=== PATIENT | female | born 1980 | race Caucasian/White ===

== ENCOUNTER 2018-03-20 13:29 | Inpatient (IN) | payer OTHER ==
[~2018-03-20] VITALS: Ht 161.3 cm; Wt 67.1 kg
[~2018-03-20 13:29] MED LIST: ACE3 PO; ALB6.7R INH; IBU800 PO; IBUP800T37 PO; MULT-1032 PO; OMEP-137 PO; ONDA4TAB97 PO
[2018-03-20] MEDS ORDERED: OXYTOCIN 30 UNIT/D5LR 500 ML 500 ML IV PRN (13:43)
[2018-03-20] MEDS ORDERED: LR(*) 1000 ML BAG 1,000 ML IV SCH (13:43)
[2018-03-20] MEDS ORDERED: LIDOCAINE/SOD BICARB 8.4% SYR SC PRN (13:45)
[2018-03-20] MEDS ORDERED: fentaNYL CITR 100 MCG/2 ML AMP IVP PRN (13:45)
[2018-03-20] MEDS ORDERED: LIDOCAINE 1% LOCAL 300 MG/30ML INJ PRN (13:45)
[2018-03-20] MEDS ORDERED: ONDANSETRON 4 MG/2 ML VIAL IVP PRN (13:45)
[2018-03-20] MEDS ORDERED: FLUSH 10 ML SYR IVP PRN (13:45)
--- NOTE | 2018-03-20 13:59 | History & Physical ---
History of Present Illness Chief Complaint Induction for 13wk demise History of Present Illness 37yo at 16w4d by LMP presents for induction due to missed AB. She presented for transfer of care today and was supposed to be 16w4d. Ultrasound revealed no FCA and CRL ~13w2d. No current pain or bleeding. 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 Family History: FH: hypertension Family member FH: thyroid condition Family member Med Rec Home Meds Reported Medications Albuterol Sulfate (PROVENTIL HFA) 6.7 Gm Inh, 1-2 PUFF INH PRN, INH 03/20/18 Ondansetron Hcl (ZOFRAN) 4 Mg Tablet, 4 MG PO PRN, TAB 03/18/18 Omeprazole (OMEPRAZOLE) 20 Mg Tablet.dr, 10 MG PO PRN Y for WHEEZING, TAB 03/18/18 Multivitamin (FLINTSTONES) 1 Each Tab.chew, 1 EACH PO, TAB.CHEW 03/18/18 Discontinued Scripts Acetaminophen/Codeine (TYLENOL #3 (OR EQUIV)) 1 Each Tab, 1-2 EACH PO Q4H Y for pain, #30 TAB 0 Refills Prov:KENNETH FRANCO MD 05/20/15 Ibuprofen (IBUPROFEN) 800 Mg Tab, 800 MG PO Q8H Y for pain, #40 TAB 0 Refills Prov:KENNETH FRANCO MD 05/20/15 Review of Systems Constitutional: No Fever Eyes: No Vision Change Cardiovascular: No Chest Pain, No Palpitations Respiratory: No Shortness of Breath, No Cough Gastrointestinal: No Nausea, No Vomiting, No Diarrhea Genitourinary: No Dysuria Musculoskeletal: No Pain Psychiatric: No Depression, No Anxiety Exam General Exam General Apperance: Alert/Awake/No Acute Distress Neuro: No Gross deficits Eyes: Normal Extraocular Movement & Vison Cardiovascular: Regular Rate and Rhythm Respiratory: No Respiratory Distress, Clear to Auscultation Abdomen: Gravid - Non-Tender : Normal Musculoskeletal: No Weakness/Pain Extremities: No Cyanosis,Clubbing or Edema Integumentary: Skin Intact without Lesions or Rash Psychological: Alert & Oriented X3, Appropriate Mood & Affect Assessment and Plan Problems: (1) Missed with demise before 20 completed weeks of gestation Assessment & Plan: Admit patient. Plan cytotec vaginally. Epidural and anesthesia as desires. Rh positive. Declines any post-delivery testing of tissue. KENNETH FRANCO MD Mar 20, 2018 13:59
[2018-03-20] MEDS ORDERED: MISOPROSTOL 200 MCG TAB PV ONE (14:00)
[2018-03-20 14:10] LABS: PLATELET COUNT, AUTOMATED 245 K/uL (150-450)
[2018-03-20 15:49] VITALS: BP 109/65; Ht 161.3 cm; Wt 67.1 kg
[2018-03-20] MEDS ORDERED: ALB6.7R INH (16:57)
--- NOTE | 2018-03-20 21:09 | Labor Progress Note ---
Labor Subjective Progress Notes Subjective Pt just felt a gush of fluid and noted some bleeding. No significant cramping yet. Labor Objective Vital Signs Vital Signs Date Time Temp Pulse Resp B/P (MAP) Pulse Ox O2 Delivery O2 Flow Rate FiO2 03/20/18 15:49 98.5 65 18 109/65 (80) 96 Room Air Vaginal Discharge/Fluid?: Bloody Fluid General Exam General Appearance: Alert/Awake/No Acute Distress Abdomen: Gravid - Non-Tender : Normal Integumentary: Skin Intact without Lesions or Rash Psychological: Alert & Oriented X3, Appropriate Mood & Affect Other Result Diagram: 03/20/18 1401 Assessment and Plan Problems: (1) Missed with demise before 20 completed weeks of gestation Assessment & Plan: I suspect the patient just ruptured membranes. She is feeling more cramping. May consider po cytotec if she needs additional now. KENNETH FRANCO MD Mar 20, 2018 21:09
[2018-03-20] MEDS ORDERED: MISOPROSTOL 200 MCG TAB PO ONE (21:35)
[2018-03-20] MEDS ORDERED: ONDANSETRON 4 MG ODT TABDP SL PRN (21:35)
--- NOTE | 2018-03-21 00:07 | Labor Progress Note ---
Labor Subjective Progress Notes Subjective Pt felt some pressure and something coming out of the vagina. Labor Objective Vital Signs Vital Signs Date Time Temp Pulse Resp B/P (MAP) Pulse Ox O2 Delivery O2 Flow Rate FiO2 03/20/18 15:49 98.5 65 18 109/65 (80) 96 Room Air General Exam General Appearance: Alert/Awake/No Acute Distress Abdomen: Other (fetus passed onto the bed spontaneously; the placenta was then evacuated from the vagina without difficulty and appears to be intact) Psychological: Alert & Oriented X3, Appropriate Mood & Affect Other Result Diagram: 03/20/18 1401 Assessment and Plan Problems: (1) Missed with demise before 20 completed weeks of gestation Assessment & Plan: Pt passed tissue and placenta. She is having minimal bleeding at this time. She is comfortable after one dose of fentanyl. She is interested in going home tonight if possible. Will plan discharge to home after one hour if still stable. Discussed precautions. RTC 1-2 weeks. KENNETH FRANCO MD Mar 21, 2018 00:07
[2018-03-21] MEDS ORDERED: IBUPROFEN 800 MG TAB PO PRN (00:10)
--- NOTE | 2018-03-21 00:21 | OB/GYN Discharge Summary ---
Discharge Summary Reason for Hosp/Final Diag: (1) Missed with demise before 20 completed weeks of gestation Hospital Course & Plan: Pt passed tissue and placenta after one dose of vaginal and one dose of oral cytotec. She is having minimal bleeding at this time. She is comfortable after one dose of fentanyl. She is interested in going home tonight if possible. Will plan discharge to home after one hour if still stable. Discussed precautions. RTC 1-2 weeks. Lates Vital Signs Vital Signs Date Time Temp Pulse Resp B/P (MAP) Pulse Ox O2 Delivery O2 Flow Rate FiO2 03/20/18 15:49 98.5 65 18 109/65 (80) 96 Room Air Weight (Pounds): 148 Result Diagram: 03/20/18 1401 Condition: Improved Discharge: Home, Self Jail Meds Reported Medications Albuterol Sulfate (PROVENTIL HFA) 6.7 Gm Inh, 1-2 PUFF INH PRN, INH 03/20/18 Ondansetron Hcl (ZOFRAN) 4 Mg Tablet, 4 MG PO PRN, TAB 03/18/18 Omeprazole (OMEPRAZOLE) 20 Mg Tablet.dr, 10 MG PO PRN Y for WHEEZING, TAB 03/18/18 Multivitamin (FLINTSTONES) 1 Each Tab.chew, 1 EACH PO, TAB.CHEW 03/18/18 Discontinued Scripts Acetaminophen/Codeine (TYLENOL #3 (OR EQUIV)) 1 Each Tab, 1-2 EACH PO Q4H Y for pain, #30 TAB 0 Refills Prov:KENNETH MONTGOMERY MD 05/20/15 Ibuprofen (IBUPROFEN) 800 Mg Tab, 800 MG PO Q8H Y for pain, #40 TAB 0 Refills Prov:KENNETH MONTGOMERY MD 05/20/15 Follow up Referrals: [facility] - 04/03/18 @ [facility] with Kenneth Montgomery Md Discharge Diet: As Tolerates Discharge Activity: Pelvic Rest KENNETH MONTGOMERY MD Mar 21, 2018 00:21
== END 2018-03-21 01:05 | disposition home or self-care (01) | DRG 779 ==
LOC: OB 13:29
PROVIDERS: ADMIT Obstetrics & Gynecology; ATTEND Obstetrics & Gynecology
DX: O02.1 Missed abortion (principal); Z3A.16 16 weeks gestation of pregnancy; Z88.2 Allergy status to sulfonamides; Z91.040 Latex allergy status
CPT/HCPCS: 36415; 85025; 86850; 86900; 86901; J3010; J7120; S0119

== ENCOUNTER → 2018-07-14 | Outpatient (CLI) | payer OTHER ==
[2018-03-20 15:49] VITALS: BMI 25.8
[2018-07-14 09:53] LABS: PLATELET COUNT, AUTOMATED 260 K/uL (150-450)
== END ==
LOC: LAB 08:27
PROVIDERS: ATTEND Obstetrics & Gynecology
DX: Z34.91 Encounter for supervision of normal pregnancy, unspecified, first trimester (principal); O09.299 Supervision of pregnancy with other poor reproductive or obstetric history, unspecified trimester
CPT/HCPCS: 36415; 81001; 84702; 85025; 86592; 86703; 86762; 86850; 86900; 86901; 87088; 87340

== ENCOUNTER → 2018-07-16 | Outpatient (CLI) | payer OTHER ==
[2018-03-20 15:49] VITALS: BMI 25.8
== END ==
LOC: LAB 11:17
PROVIDERS: ATTEND Obstetrics & Gynecology
DX: O09.299 Supervision of pregnancy with other poor reproductive or obstetric history, unspecified trimester (principal)
CPT/HCPCS: 36415; 84702

== ENCOUNTER → 2019-01-06 | Outpatient (CLI) | payer OTHER ==
[2018-03-20 15:49] VITALS: BMI 25.8
== END ==
LOC: LAB 13:22
PROVIDERS: ATTEND Obstetrics & Gynecology
DX: R30.0 Dysuria (principal)
CPT/HCPCS: 87088

== ENCOUNTER → 2019-02-06 | Outpatient (CLI) | payer OTHER ==
[2018-03-20 15:49] VITALS: BMI 25.8
[~2019-02-06] MED LIST changes: +METO-224 PO; +ONDA4VIA3 IVP; +PREN-127 PO; +PROM12.556 PO
[2019-02-06 09:43] LABS: PLATELET COUNT, AUTOMATED 249 K/uL (150-450)
== END ==
LOC: LAB 08:15
PROVIDERS: ATTEND Obstetrics & Gynecology
DX: Z34.81 Encounter for supervision of other normal pregnancy, first trimester (principal)
CPT/HCPCS: 36415; 81001; 85025; 86592; 86703; 86762; 86850; 86900; 86901; 87088; 87340

== ENCOUNTER → 2019-02-17 | Outpatient (CLI) | payer OTHER ==
[2018-03-20 15:49] VITALS: BMI 25.8
== END ==
LOC: LAB 07:51
PROVIDERS: ATTEND Student in an Organized Health Care Education/Training Program
DX: O09.521 Supervision of elderly multigravida, first trimester (principal)
CPT/HCPCS: 87491; 87591

== ENCOUNTER 2019-03-05 00:34 | Day surgery (SDC) | payer OTHER ==
[2018-03-20 15:49] VITALS: Ht 162.6 cm; Wt 64.4 kg
[~2019-03-05] VITALS: Ht 162.6 cm; Wt 64.4 kg
[2019-03-05] VITALS (7 sets, daily range): BP systolic 100–123; BP diastolic 61–77
[2019-03-05] MEDS ORDERED: FAMOTIDINE 20 MG TAB PO ONE (13:00)
[2019-03-05] MEDS ORDERED: NORMOSOL R SOLN(*) 1000 ML BAG 1,000 ML IV PRN (13:00)
[2019-03-05] MEDS ORDERED: LIDOCAINE/SOD BICARB 8.4% SYR ID ONE (13:00)
[2019-03-05 13:18] LABS: PLATELET COUNT, AUTOMATED 252 K/uL (150-450)
[2019-03-05] MEDS ORDERED: ceFAZolin(*) 2GM/D5W 50ML 50 ML IVPB ONE (13:25)
[2019-03-05] MEDS ORDERED: MIDAZOLAM 2 MG/2 ML VIAL IVP PRN (14:00)
[2019-03-05] MEDS ORDERED: PROPOFOL EMUL(*) 10MG/ML 20 ML 60 ML ONE (14:10)
[2019-03-05] MEDS ORDERED: LIDOCAINE MPF 1% 5 ML VIAL ONE (14:10)
[2019-03-05] MEDS ORDERED: fentaNYL CITR 100 MCG/2 ML AMP ONE (14:12)
[2019-03-05] MEDS ORDERED: ONDANSETRON 4 MG/2 ML VIAL ONE (14:13)
[2019-03-05] MEDS ORDERED: DEXAMETHASONE SOD 4 MG/ML VIAL ONE (14:13)
[2019-03-05] MEDS ORDERED: LIDOCAINE 1%MDV(*)200 MG/20 ML 1 ML ONE (14:43)
[2019-03-05] MEDS ORDERED: KETOROLAC 30 MG/ML VIAL ONE (15:03)
[2019-03-05] MEDS ORDERED: METOCLOPRAMIDE 10 MG/2 ML SDV IVP PRN (15:45)
[2019-03-05] MEDS ORDERED: ONDANSETRON 4 MG ODT TABDP SL PRN (15:45)
[2019-03-05] MEDS ORDERED: APAP/HYDROCODONE 325/5 TAB PO PRN (15:45)
[2019-03-05] MEDS ORDERED: LR(*) 1000 ML BAG 1,000 ML IV ONE (15:45)
[2019-03-05] MEDS ORDERED: DOXY-229 PO (15:50)
--- NOTE | 2019-03-05 15:53 | OB/GYN Discharge Summary ---
Discharge Summary Reason for Hosp/Final Diag: (1) Missed Hospital Course & Plan: Pt presented for a scheduled Surgery for a miscarriage. Pt was counseled on alternative and desired to proceed with suction D&C. Underwent procedure with out any difficulty. See operative report for details of procedure. Pt was discharged home from same day surgery once she was meeting ambulatory surgery goals. Lates Vital Signs Vital Signs Date Time Temp Pulse Resp B/P (MAP) Pulse Ox O2 Delivery O2 Flow Rate FiO2 03/05/19 15:30 57 16 112/72 (85) 96 Room Air 03/05/19 15:20 96.8 Weight (Pounds): 142 Result Diagram: 03/05/19 1300 Condition: Improved Discharge: Home Home Meds Active Scripts Ondansetron Hcl (ZOFRAN) 4 Mg Tablet, 1 TAB PO Q8H PRN for NAUSEA/VOMITING, #30 TAB 1 Refill Prov:RAYSHAWN SIMS DO 02/02/19 Metoclopramide Hcl (METOCLOPRAMIDE HCL) 10 Mg Tablet, 10 MG PO Q8H PRN for NAUSEA, #10 TAB 0 Refills Prov:RAYSHAWN SIMS DO 02/02/19 Discontinued Reported Medications Vits W-Ca,Fe,Fa(<1MG) ( VITAMINS) 1 Each Tablet, 1 EACH PO DAILY, TAB 02/02/19 Follow up with: [facility] [phone], Dr. Sims [phone] Follow up in: 6 wks PP or PO, 2 wks PO Discharge Diet: As Tolerates, Increase Fluid Intake Discharge Activity: As Tolerates, Pelvic Rest RAYSHAWN SIMS DO Mar 05, 2019 15:53
--- NOTE | 2019-03-05 16:02 | Post Operative Note ---
Operative Note - MANAGER SQL Operative Day Date: Mar 05, 2019 Time: 15:54 Physicians Surgeon: Rayshawn Metz Anesthesia: MAC 10 cc of 1% lidocaine for paracervical block Diagnosis Pre-Op Diagnosis: 38 y/o Female Missed +T18 on NIPT Post-Op Diagnosis: Same Procedure Findings: Uterus 10-12 week size. POC removed with out any dificulty. Bleeding minimal post procedure. Procedure(s): Paracervical Block Suction D&C Specimen Removed:(Maybe N/A): POC Complications: 0 known Fluids Fluids: 800 u/o 50 Estimated Blood Loss: 20 Dictated Date OP Note Dictated: Mar 05, 2019 Time OP Note Dictated: 16:01 RAYSHAWN METZ DO Mar 05, 2019 16:02
--- NOTE | 2019-03-05 16:23 | NUR ---
More alert. STARTED ON CRACKERS CHEESE AND JUICE PO. NO NAUSEA. MINIMAL CRAMPING. DISCHARGE INSTRUCTIONS REVIEWED .WITH PT AND HER . THEY STATE UNDERSTANDING.
--- NOTE | 2019-03-05 16:45 | OPERATIVE REPORT 1 ---
EVENT DATE: March 05, 2019 SURGEON: Marcell Metz DO ANESTHESIOLOGIST: Ernie Page MD ANESTHESIA: MAC with 10 mL of 1% lidocaine for the paracervical block. PREOPERATIVE DIAGNOSES 1. A 38-year-old multigravida female. 2. Missed . 3. 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 POSTOPERATIVE DIAGNOSES 1. A 38-year-old multigravida female. 2. Missed . 3. 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 PROCEDURES PERFORMED 1. Paracervical block. 2. Suction dilatation and curettage. FINDINGS Uterus 10 to 12 weeks' size. Products of conception removed without any difficulty. Bleeding minimal post procedure. Uterus started off 10 to 12 weeks and was 8 weeks post procedure. ESTIMATED BLOOD LOSS 30 mL. PATHOLOGY Products of conception. INTRAVENOUS FLUIDS 800 mL. URINE OUTPUT 50 mL. COMPLICATIONS None. CONDITION Stable to the recovery room. COUNTS Correct for all needles, laps, sponges, and instruments. INDICATIONS AND CONSENT Patient is a 38-year-old multigravida female who had noninvasive testing that was positive for trisomy-18. Patient was sent to [facility] for chorionic villous sampling, and prior to [facility] testing, ultrasound was performed with no heart tones at that time. Patient was counseled on options of treatment and desired to proceed with suction D and C. She was counseled accordingly. Once consents were signed, she was taken to the operating room. DESCRIPTION OF PROCEDURE The patient was taken to the operating room where she was placed in the dorsal supine position. She then underwent MAC anesthesia. She was then placed in the lithotomy position. She was prepped and draped in the usual sterile manner. A sterile speculum was placed in the vagina. Cervix was visualized. It was grasped with a single-toothed tenaculum. 10 mL of lidocaine were injected in a circumferential manner at 2, 4, 6, 7, and 10 o'clock positions of the cervix for a paracervical block. Once a paracervical block was finished, uterus was sounded and was noted to be approximately 12 cm. Sequential dilation was performed with Hegar dilators starting with a [address] to a 10. Once the dilation was complete, a 9 curved curette was easily placed to the uterine fundus. Suction was applied with the suction curette moving in a circumferential manner. With multiple passes, the products of conception were easily removed. A sharp curette was used with one pass until uterine cry was noted. Suction curette was again passed through the cervical os. Suction was applied, and any remaining products were removed at this time. With the suction curette removed, the bleeding was noted minimal from the cervical os. At this point, the patient was given Toradol for pain control. The patient was cleaned. She was then awoken and transferred to a hospital bed and transferred to the recovery room in stable condition. JANNIE
[2019-03-05] MEDS ORDERED: IBUPROFEN 800 MG TAB PO SCH (17:00)
== END 2019-03-05 17:35 | disposition home or self-care (01) ==
LOC: OR 00:34
PROVIDERS: ATTEND Student in an Organized Health Care Education/Training Program
DX: O02.1 Missed abortion (principal)
CPT/HCPCS: 59820; 85025; 88305; J1100; J1885; J2001; J2405; J2704; J3010; J0690

== ENCOUNTER 2019-04-11 19:10 | Emergency (ER) | payer OTHER ==
[2018-03-20 15:49] VITALS: Wt 64.4 kg
[~2019-04-11 19:10] MED LIST changes: +DOXY-229 PO
--- NOTE | 2019-04-11 19:55 | ER Report ---
History and Physical Time Seen By MD: 19:55 HPI/ROS CHIEF COMPLAINT: Pelvic pain HISTORY OF PRESENT ILLNESS: This is a 38-year-old female. She has had significant pelvic pain today, started as mild pain this morning, worsening through the day, sometimes so bad that it causes nausea. No vaginal bleeding or discharge. She did have a dilation and curettage about one month ago for miscarriage associated with trisomy 18. Has had no problems since this procedure and had a follow-up with ULTRASOUND COORDINATOR a couple weeks ago. Denies any fevers or chills. Has had normal urination. Pain is bilateral lower held this area and suprapubic area and nonradiating. Does not appear to radiate into the legs or into the back. No chest pain or trouble breathing. Allergies: Coded Allergies: Sulfa (Sulfonamide Antibiotics) (Verified Allergy, Intermediate, RASH, 05/20/15) latex (Verified Allergy, Intermediate, RASH, 05/19/15) Home Meds Active Scripts Hydrocodone Bit/Acetaminophen (HYDROCODON-ACETAMINOPHEN 5-325) 1 Each Tablet, 1 EACH PO Q4H PRN for PAIN, #8 TAB 0 Refills Prov:SADIA ABARCA MD 04/12/19 Doxycycline Monohydrate (DOXYCYCLINE MONOHYDRATE) 100 Mg Tablet, 1 TAB PO BID, # 3 TAB 0 Refills Prov:RAYSHAWN METZ DO 03/05/19 Ondansetron Hcl (ZOFRAN) 4 Mg Tablet, 1 TAB PO Q8H PRN for NAUSEA/VOMITING, #30 TAB 1 Refill Prov:RAYSHAWN METZ DO 02/02/19 Metoclopramide Hcl (METOCLOPRAMIDE HCL) 10 Mg Tablet, 10 MG PO Q8H PRN for NAUSEA, #10 TAB 0 Refills Prov:RAYSHAWN METZ DO 02/02/19 Reviewed Nurses Notes: Yes Hx Smoking: No Smoking Status: Never Smoker Exposure to Second Hand Smoke?: No Hx Alcohol Use: No Constitutional Vital Sign - Last 24 Hours 04/11/19 04/11/19 04/11/19 04/11/19 19:54 19:55 19:55 20:00 Temp 98.1 Pulse 67 86 Resp 16 B/P (MAP) 115/76 (89) 115/76 123/76 (92) Pulse Ox 94 93 O2 Delivery Room Air 5/1804/11/19 04/11/19 04/11/19 20:10 20:25 20:30 20:40 Pulse 66 73 76 B/P (MAP) 110/76 (87) Pulse Ox 93 94 93 04/11/19 04/11/19 04/11/19 04/11/19 20:55 21:00 21:30 21:40 Pulse 71 70 B/P (MAP) 103/82 (89) 117/75 (89) Pulse Ox 94 92 04/11/19 04/11/19 04/11/19 04/11/19 21:55 22:00 22:05 22:20 Pulse 76 79 78 B/P (MAP) 99/65 (76) Pulse Ox 94 92 93 04/11/19 04/11/19 04/11/19 04/11/19 22:30 22:35 22:50 23:00 Pulse 85 83 B/P (MAP) 111/67 (82) 108/75 (86) Pulse Ox 93 94 04/11/19 04/11/19 04/11/19 04/11/19 23:05 23:20 23:30 23:35 Pulse 89 84 78 B/P (MAP) 101/66 (78) Pulse Ox 93 94 94 04/11/19 04/12/19 04/12/19 23:50 00:00 00:05 Pulse 78 ??? B/P (MAP) 103/64 (77) Pulse Ox 93 93 Physical Exam General Appearance: The patient is alert. No acute distress. Eyes: Pupils are equal, round. No pallor, injection or icterus. ENT: Mucous membranes are moist. Respiratory: Lungs are clear to auscultation. Cardiovascular: Regular rate and rhythm. No murmurs, gallops or rubs. Normal capillary refill. No edema. Gastrointestinal: Abdomen is soft, tender in the suprapubic area. Nondistended. No rebound or guarding. Normal active bowel sounds. No costovertebral angle tenderness with percussion. Neurological: Alert and oriented x3. No focal neurologic deficits Skin: Warm and dry. Musculoskeletal: Extremities are nontender. DIFFERENTIAL DIAGNOSIS: After history and physical exam, differential diagnosis was considered for abdominal pain in a female including but not limited to ovarian cyst, ovarian torsion, urinary tract infection Medical Decision Making Data Points Result Diagram: 04/11/19204604/11/197 Laboratory Hematology Test 04/11/19 20:47 04/11/19 21:06 Red Blood Count 4.84 M/uL (4.17-5.56) Mean Corpuscular Volume 86.8 fL (80.0-96.0) Mean Corpuscular Hemoglobin 28.4 pg (26.0-33.0) Mean Corpuscular Hemoglobin Concent 32.8 g/dL (32.0-36.0) Red Cell Distribution Width 12.8 % (11.5-14.5) Mean Platelet Volume 7.8 fL (7.2-11.1) Neutrophils (%) (Auto) 80.3 % (39.4-72.5) Lymphocytes (%) (Auto) 12.6 % (17.6-49.6) Monocytes (%) (Auto) 6.2 % (4.1-12.4) Eosinophils (%) (Auto) 0.6 % (0.4-6.7) Basophils (%) (Auto) 0.3 % (0.3-1.4) Nucleated RBC Relative Count (auto) 0.0 /100WBC Neutrophils # (Auto) 8.4 K/uL (2.0-7.4) Lymphocytes # (Auto) 1.3 K/uL (1.3-3.6) Monocytes # (Auto) 0.6 K/uL (0.3-1.0) Eosinophils # (Auto) 0.1 K/uL (0.0-0.5) Basophils # (Auto) 0.0 K/uL (0.0-0.1) Nucleated RBC Absolute Count (auto) 0.01 K/uL Sodium Level 138 mmol/L (137-145) Potassium Level 4.1 mmol/L (3.5-5.0) Chloride Level 109 mmol/L (98-107) Carbon Dioxide Level 22 mmol/L (22-31) Blood Urea Nitrogen 12 mg/dl (7-18) Creatinine 0.80 mg/dl (0.52-1.04) Glomerular Filtration Rate Calc > 60.0 Random Glucose 98 mg/dl (75-110) Calcium Level 9.1 mg/dl (8.4-10.2) Total Bilirubin 1.2 mg/dl (0.2-1.3) Aspartate Amino Transf (AST/SGOT) 16 U/L (0-35) Alanine Aminotransferase (ALT/SGPT) 19 U/L (0-56) Alkaline Phosphatase 63 U/L (0-126) Total Protein 7.1 g/dl (6.3-8.2) Albumin 4.0 g/dl (3.5-5.0) Human Chorionic Gonadotropin, Qual Negative (NEGATIVE) Urine Color Straw Urine Clarity Clear Urine pH 7.0 pH (4.8-9.5) Urine Specific [place] 1.005 Urine Protein Negative mg/dL (NEGATIVE) Urine Glucose (UA) Negative mg/dL (NEGATIVE) Urine Ketones Negative mg/dL (NEGATIVE) Urine Blood Negative (NEGATIVE) Urine Nitrite Negative (NEGATIVE) Urine Bilirubin Negative (NEGATIVE) Urine Urobilinogen Negative mg/dL (0.2-1.9) Urine Leukocyte Esterase Negative (NEGATIVE) Urine RBC None /HPF (0-2/HPF) Urine WBC <1 /HPF (0-5/HPF) Urine Squamous Epithelial Cells Few /LPF (</=FEW) Urine Bacteria Few /HPF (NONE-FEW) Urine Mucus None /HPF (NONE-FEW) Chemistry Test 04/11/19 20:47 04/11/19 21:06 White Blood Count 10.5 k/uL (4.5-11.0) Red Blood Count 4.84 M/uL (4.17-5.56) Hemoglobin 13.7 g/dL (12.0-16.0) Hematocrit 42.0 % (34.0-47.0) Mean Corpuscular Volume 86.8 fL (80.0-96.0) Mean Corpuscular Hemoglobin 28.4 pg (26.0-33.0) Mean Corpuscular Hemoglobin Concent 32.8 g/dL (32.0-36.0) Red Cell Distribution Width 12.8 % (11.5-14.5) Platelet Count 288 K/uL (150-450) Mean Platelet Volume 7.8 fL (7.2-11.1) Neutrophils (%) (Auto) 80.3 % (39.4-72.5) Lymphocytes (%) (Auto) 12.6 % (17.6-49.6) Monocytes (%) (Auto) 6.2 % (4.1-12.4) Eosinophils (%) (Auto) 0.6 % (0.4-6.7) Basophils (%) (Auto) 0.3 % (0.3-1.4) Nucleated RBC Relative Count (auto) 0.0 /100WBC Neutrophils # (Auto) 8.4 K/uL (2.0-7.4) Lymphocytes # (Auto) 1.3 K/uL (1.3-3.6) Monocytes # (Auto) 0.6 K/uL (0.3-1.0) Eosinophils # (Auto) 0.1 K/uL (0.0-0.5) Basophils # (Auto) 0.0 K/uL (0.0-0.1) Nucleated RBC Absolute Count (auto) 0.01 K/uL Glomerular Filtration Rate Calc > 60.0 Calcium Level 9.1 mg/dl (8.4-10.2) Total Bilirubin 1.2 mg/dl (0.2-1.3) Aspartate Amino Transf (AST/SGOT) 16 U/L (0-35) Alanine Aminotransferase (ALT/SGPT) 19 U/L (0-56) Alkaline Phosphatase 63 U/L (0-126) Total Protein 7.1 g/dl (6.3-8.2) Albumin 4.0 g/dl (3.5-5.0) Human Chorionic Gonadotropin, Qual Negative (NEGATIVE) Urine Color Straw Urine Clarity Clear Urine pH 7.0 pH (4.8-9.5) Urine Specific [place] 1.005 Urine Protein Negative mg/dL (NEGATIVE) Urine Glucose (UA) Negative mg/dL (NEGATIVE) Urine Ketones Negative mg/dL (NEGATIVE) Urine Blood Negative (NEGATIVE) Urine Nitrite Negative (NEGATIVE) Urine Bilirubin Negative (NEGATIVE) Urine Urobilinogen Negative mg/dL (0.2-1.9) Urine Leukocyte Esterase Negative (NEGATIVE) Urine RBC None /HPF (0-2/HPF) Urine WBC <1 /HPF (0-5/HPF) Urine Squamous Epithelial Cells Few /LPF (</=FEW) Urine Bacteria Few /HPF (NONE-FEW) Urine Mucus None /HPF (NONE-FEW) Urinalysis Test 04/11/19 21:06 Urine Color Straw Urine Clarity Clear Urine pH 7.0 pH (4.8-9.5) Urine Specific [place] 1.005 Urine Protein Negative mg/dL (NEGATIVE) Urine Glucose (UA) Negative mg/dL (NEGATIVE) Urine Ketones Negative mg/dL (NEGATIVE) Urine Blood Negative (NEGATIVE) Urine Nitrite Negative (NEGATIVE) Urine Bilirubin Negative (NEGATIVE) Urine Urobilinogen Negative mg/dL (0.2-1.9) Urine Leukocyte Esterase Negative (NEGATIVE) Urine RBC None /HPF (0-2/HPF) Urine WBC <1 /HPF (0-5/HPF) Urine Squamous Epithelial Cells Few /LPF (</=FEW) Urine Bacteria Few /HPF (NONE-FEW) Urine Mucus None /HPF (NONE-FEW) EKG/Imaging Imaging Examination: Pelvic ultrasound Comparison: None Available History: D&C one month ago. Pelvic pain today. Findings: Standard endovaginal pelvic ultrasound with color flow and spectral a nalysis. Uterus: Uterus measurement: 8.8 x 4.3 x 5.8 cm Double wall endometrial thickness is 6 mm. The endometrial tissue is mildly heterogeneous but no discrete mass or vascular abnormality is identified. Endometrial canal contains heterogeneous hypoechoic fluid and debris. 2.0 x 1.2 x 2.2 cm slightly heterogeneous and echogenic lesion in the anterior lower uterine segment; there is no definite evidence of mass effect on the endometrium. Adnexa: Right ovary: 3.0 x 3.3 x 1.8 cm . 1.3 cm dominant follicle. No suspicious ovarian or adnexal mass. Normal arterial and venous flow is documented within the ovary on Doppler evaluation. Left ovary: 3.5 x 2.7 x 2.1 cm . 1.3 cm dominant follicle. No suspicious ovarian or adnexal mass. Normal arterial and venous flow is documented within the ovary on Doppler evaluation. Free fluid: None Urinary bladder: Unremarkable. IMPRESSION: 1. Endometrial canal is mildly distended by echogenic fluid/debris. Given the history, this could be residual blood products although correlation with any evidence of acute bleeding is recommended. No endometrial mass or vascular abnormality is identified. 2. Anterior lower uterine segment 2.2 cm slightly heterogeneous and echogenic lesion is suggestive of a fibroid. There is no evidence of associated mass effect on the endometrium. 3. Negative sonographic evaluation of the adnexa. Report Dictated By: Héctor Bonilla MD at 04/11/2019 10:00 PM ED Course/Re-evaluation ED Course Labs unremarkable. test negative. Ultrasound done which shows follicles, normal blood flow in the adnexa, no masses. There is a change in the endometrium with some debris there that looks like possible active bleeding but no vaginal bleeding this time. Also a small fibroid. I called and discussed this with Dr. Montgomery, ULTRASOUND COORDINATOR, to see if there are any other specific thing she w ould be worried about. Pelvic exam: The vulva was normal no lesions. The vagina did not have significant discharge. The cervix was closed and there was some brownish discharge in the vaginal area consistent with likely beginning of her period. The uterus she did have a little bit of tenderness with palpating over the uterus and cervix area The adnexa had no masses and no tenderness. The exam was performed with a surgical lead. Based on this evaluation, we are going to go and treat her with a little bit of pain medicine, Lortab 5/325, and have her follow up with Dr. Montgomery or Dr. Metz in the office this week. Decision to Disposition Date: April 12, 2019 Decision to Disposition Time: 00:43 Depart Departure Latest Vital Signs Vital Signs Date Time Temp Pulse Resp B/P (MAP) Pulse Ox O2 Delivery O2 Flow Rate FiO2 04/12/19 00:05 ??? 93 04/12/19 00:00 103/64 (77) 04/11/19 19:55 98.1 16 Room Air Impression: Primary Impression: Pelvic pain Condition: Improved Disposition: HOME OR SELF-CARE Referrals: RAYSHAWN EMTZ DO (PCP) New Scripts Hydrocodone Bit/Acetaminophen (HYDROCODON-ACETAMINOPHEN 5-325) 1 Each Tablet 1 EACH PO Q4H PRN for PAIN, #8 TAB 0 Refills Prov: SADIA ABARCA MD 04/12/19 Patient Instructions: Pelvic Pain in Women (ED) Additional Instructions: Take Ibuprofen 200mg, 3 tablets every 6 hours as needed for pain. Take Lortab 5/325, one every 4 hours as needed for severe pain. Call Dr. Metz's office on Saturday to schedule a follow-up with them this week. SADIA ABARCA MD April 11, 2019 19:55
[2019-04-11 20:57] LABS: PLATELET COUNT, AUTOMATED 288 K/uL (150-450)
--- NOTE | 2019-04-11 22:11 | RADIOLOGY IMAGING REPORT ---
FACILITY: PATIENT NAME: Cari Yen : 1980 MR: [id number] V: [id number] EXAM DATE: ORDERING PHYSICIAN: SADIA ABARCA TECHNOLOGIST: Location: [facility] - [place] Patient: Cari Yen : 1980 Visit/Account:[id number] Date of Sevice: 04/11/2019 Examination: Pelvic ultrasound Comparison: None Available History: D&C one month ago. Pelvic pain today. Findings: Standard endovaginal pelvic ultrasound with color flow and spectral analysis. Uterus: Uterus measurement: 8.8 x 4.3 x 5.8 cm Double wall endometrial thickness is 6 mm. The endometrial tissue is mildly heterogeneous but no disc rete mass or vascular abnormality is identified. Endometrial canal contains heterogeneous hypoechoic fluid and debris. 2.0 x 1.2 x 2.2 cm slightly heterogeneous and echogenic lesion in the anterior lowe r uterine segment; there is no definite evidence of mass effect on the endometrium. Adnexa: Right ovary: 3.0 x 3.3 x 1.8 cm . 1.3 cm dominant follicle. No suspicious ovarian or adnexal mass. N ormal arterial and venous flow is documented within the ovary on Doppler evaluation. Left ovary: 3.5 x 2.7 x 2.1 cm . 1.3 cm dominant follicle. No suspicious ovarian or adnexal mass. No rmal arterial and venous flow is documented within the ovary on Doppler evaluation. Free fluid: None Urinary bladder: Unremarkable. IMPRESSION: 1. Endometrial canal is mildly distended by echogenic fluid/debris. Given the history, this could be residual blood products although correlation with any evidence of acute bleeding is recommended. No e ndometrial mass or vascular abnormality is identified. 2. Anterior lower uterine segment 2.2 cm slightly heterogeneous and echogenic lesion is suggestive of a fibroid. There is no evidence of associated mass effect on the endometrium. 3. Negative sonographic evaluation of the adnexa. Report Dictated By: Héctor Bonilla MD at 04/11/2019 10:00 PM Report E-Signed By: Héctor Bonilla MD at 04/11/2019 10:07 PM WSN:[id number]
[2019-04-12] VITALS: BP 103/64
[2019-04-12] MEDS ORDERED: LOR5/325 PO (00:44)
[2019-04-12] MEDS ORDERED: ACET/HYDROC 5/325MG TH ER ONLY 2 TAB/BOTTLE PO ONE (00:45)
== END 2019-04-12 00:58 | disposition home or self-care (01) ==
LOC: ER 19:57
DX: R10.2 Pelvic and perineal pain (principal)
CPT/HCPCS: 76830; 81001; 82040; 82247; 82310; 82374; 82435; 82565; 82947; 84075; 84132; 84155; 84295; 84450; 84460; 84520; 84703; 85025; 99284